=== PATIENT | female | born 1945 | race Caucasian/White ===

== ENCOUNTER → 2016-09-27 | Outpatient (CLI) | payer MEDICARE, BC ==
[~2016-09-27] MED LIST: ALAVERT10 MG PO; ALBUTEROL 0.5ML INH; ALBUTEROL17 GM INH; ASPIRIN81 MG PO; CALCIUM CARBONATE; CALTRATE+D3 PL1 EACH; CLARITHROMYCIN500 MG PO; CLARITIN10 M3 PO; CLOPIDOGREL75 MG PO; COMBIVENT14.7 GM INH; COUMADIN5 MG PO; DIAZEPAM PO; EVISTA60 M1 PO; FIORICET1 TAB PO; LORTAB 5-325 M1 EACH PO; LORTAB 7.5-3251 EACH PO; NORCO 5/325 TAB1 TAB PO; NORCO1 TAB 10/3 PO; PAMELOR25 M1 PO; PANTOPRAZOLE SO40 MG PO; PREDNISONE PO; PROTONIX PO; RANITIDINE HCL150 M1 PO; SENNA-S TABLET1 EAC1 PO; SIMVASTATIN20 MG PO; SIMVASTATIN40 MG PO; SPIRIVA18 MCG INH; SYMBICORT 160/4.6 G1 INH; SYMBICORT INH; TYLENOL325 M1 PO; VALIUM10 MG PO; VIBRAMYCIN100 M1 PO; VITAMIN B12 IM/IV; VITAMIN D1000 UNIT PO; VITAMIN D250000 UNIT PO; VITAMIN D31000 UNI1 PO; ZOCOR20 MG PO
--- NOTE | ~2016-09-27 | MY11 ---
[facility] A Service of [facility] RADIOLOGY TEXT RESULTS PATIENT: VIVIENNE COREAS LOCATION: [facility] : 47 UNIT #: [id number] AGE: [address]: ANAM CHAPMAN MD (INT MED) SEX: F ORDER DR: [id number] [facility] [address] [place], [place] [address] [id number] O MR#: [id number] Acc #: [id number] NAME: VIVIENNE COREAS : 1945 SEX: F STUDY DATE/TIME: 09/27/2016 11:13 UNIT: [facility] ROOM: STUDY DESCRIPTION: MY Mammogram Screening Dig Robinson Attending Physician: Anam Chapman M.D. Ordering Physician: Anam Chapman M.D. Primary Care Physician: Anam Chapman M.D. MEDICAL IMAGING REPORT This report is preliminary unless electronic signature is present EXAM Digital screening mammogram, 09/27/2016 HISTORY 71-year-old woman, no risk elevation. Annual screening. COMPARISON Mammograms date to 06/27/2008 with most recent screening comparison 09/21/2015. FINDINGS Digital imaging of each breast was completed utilizing standard craniocaudal and mediolateral-oblique projections. Review and interpretation of digital mammograms include a second review in conjunction with FDA-approved CAD device. There is an overall increase in the parenchymal presentation bilaterally with a generalized fibronodular pattern in each breast. There are no breast masses and I see no asymmetry in the parenchymal presentation. There are no suspicious microcalcifications and I see no architectural disturbance. IMPRESSION Benign mammogram. One-year followup recommended. Patients over the age of 40 are entered into a reminder system with target due date for the next mammogram. A result letter will also be sent to the patient. BIRADS: 2 Benign finding Dictated by... [facility] A Service of [facility] RADIOLOGY TEXT RESULTS PATIENT: VIVIENNE COREAS LOCATION: [facility] : 47 UNIT #: [id number] AGE: [address]: ANAM CHAPMAN MD (INT MED) SEX: F ORDER DR: Giancarlo Dow M.D. THIS IS AN ELECTRONICALLY VERIFIED REPORT Giancarlo Dow M.D. at 09/27/2016 3:57 PM Kena TD: 09/27/2016 15:28 JOB #: [id number] MEDICAL IMAGING REPORT COPY
== END | disposition home or self-care (01) ==
LOC: CWCC 10:32
DX: Z12.31 Encounter for screening mammogram for malignant neoplasm of breast (principal)
CPT/HCPCS: G0202

== ENCOUNTER 2016-11-07 19:11 | Emergency (ER) | payer MEDICARE, BC ==
--- NOTE | ~2016-11-07 | MR18 ---
[facility] A Service of [facility] RADIOLOGY TEXT RESULTS PATIENT: VIVIENNE COREAS LOCATION: [facility] : 49 UNIT #: [id number] AGE: [address]: Andrew Godinez DO SEX: F ORDER DR: [id number] [facility] [address] [place], [place] [address] [id number] E MR#: [id number] Acc #: [id number] NAME: VIVIENNE COREAS : 1945 SEX: F STUDY DATE/TIME: 11/07/2016 19:58 UNIT: [facility] ROOM: STUDY DESCRIPTION: MR Brain Wo Contrast Attending Physician: Andrew Godinez D.O. Ordering Physician: Radha Ordonez M.D. Primary Care Physician: Kishor Chapman M.D. MRI CENTER REPORT This report is preliminary unless electronic signature is present. EXAM Brain MRI without contrast. Date of study 11/07/2016 COMPARISON Prior MRI brain dated 03/26/2016 CLINICAL HISTORY One day history of headache with visual disturbance. FINDINGS Fairly typical for age symmetric white matter changes are seen, nonspecific and probably indicating mild chronic small vessel disease. There is no MR evidence of acute ischemia or intracranial hemorrhage. Bone marrow signal is normal. There is no hydrocephalus or extraaxial fluid collection. Normal flow voids are seen in the cerebral vessels. IMPRESSION Moderate symmetric nonspecific white matter change typical of chronic small vessel disease. No acute ischemia, hemorrhage or hydrocephalus, no convincing interval change since 03/26/2016. Dictated by... Joe Viramontes M.D. THIS IS AN ELECTRONICALLY VERIFIED REPORT Joe Viramontes M.D. at 11/09/2016 9:43 AM EVE/rajeev TD: 11/08/2016 00:11 JOB #: [id number] [facility] A Service of [facility] RADIOLOGY TEXT RESULTS PATIENT: VIVIENNE COREAS LOCATION: [facility] : 49 UNIT #: [id number] AGE: [address]: Andrew Godinez DO SEX: F ORDER DR: MRI CENTER REPORT Page 1 of 1 COPY
--- NOTE | ~2016-11-07 | EKG ---
PATIENT: VIVIENNE COREAS UNIT #: [id number] Ventricular Rate: 64 BPM Atrial Rate: 64 BPM P-R Interval: 172 ms QRS Duration: 82 ms Q-T Interval: 418 ms QTC Calculation(Bezet): 431 ms P [place]: 37 degrees Calculated R [place]: -25 degrees Calculated T [place]: 44 degrees Diagnosis Line: Normal sinus rhythm Diagnosis Line: Normal ECG Diagnosis Line: When compared with ECG of 22-JUN-2016 08:38, Diagnosis Line: No significant change was found Diagnosis Line: Confirmed by MADELEINE FERMIN MD ([id number]) on 11/07/2016 Diagnosis Line: 10:39:03 PM INTERPRETING MD: ZANDER GOMES
--- NOTE | ~2016-11-07 | CT71 ---
[facility] A Service of [facility] RADIOLOGY TEXT RESULTS PATIENT: VIVIENNE COREAS LOCATION: [facility] : 49 UNIT #: [id number] AGE: [address]: Andrew Godinez DO SEX: F ORDER DR: [id number] [facility] [address] [place], [place] [address] [id number] E MR#: [id number] Acc #: [id number] NAME: VIVIENNE COREAS : 1945 SEX: F STUDY DATE/TIME: 11/07/2016 18:05 UNIT: [facility] ROOM: STUDY DESCRIPTION: CT Head Wo Contrast Attending Physician: Andrew oGdinez D.O. Ordering Physician: Radha Ordonez M.D. Primary Care Physician: Kishor Chapman M.D. MEDICAL IMAGING REPORT This report is preliminary unless electronic signature is present EXAM Head CT without contrast, date of study 11/07/2016 PROCEDURE Axial unenhanced head CT. This CT exam was performed with one or more of the following radiation dose reduction techniques: Automatic exposure control, adjustment of mA and/or kV according to patient size, and iterative reconstruction. COMPARISON Prior head CTs most recent dated 03/24/2016. HISTORY Weakness and dizziness this afternoon and visual disturbance beginning at 6:30 this morning. FINDINGS There are intracranial atherosclerotic vascular calcifications but the brain is normal. There is no hemorrhage or hydrocephalus or extraaxial fluid collection, and the skull base and calvarium are normal. IMPRESSION Negative unenhanced head CT. Incidentally noted intracranial atherosclerotic vascular calcification, normal for age. No acute findings. Dictated by... Joe Viramontes M.D. THIS IS AN ELECTRONICALLY VERIFIED REPORT Joe Viramontes M.D. at 11/09/2016 9:45 AM TEV/psc [facility] A Service of [facility] RADIOLOGY TEXT RESULTS PATIENT: VIVIENNE COREAS LOCATION: [facility] : 49 UNIT #: [id number] AGE: [address]: Andrew Godinez DO SEX: F ORDER DR: TD: 11/07/2016 22:19 JOB #: [id number] MEDICAL IMAGING REPORT Page 1 of 1 COPY
--- NOTE | ~2016-11-07 | MR134 ---
[facility] A Service of [facility] RADIOLOGY TEXT RESULTS PATIENT: VIVIENNE COREAS LOCATION: [facility] : 49 UNIT #: [id number] AGE: [address]: Andrew Godinez DO SEX: F ORDER DR: [id number] [facility] [address] [place], [place] [address] [id number] E MR#: [id number] Acc #: [id number] NAME: VIVIENNE COREAS : 1945 SEX: F STUDY DATE/TIME: 11/07/2016 22:26 UNIT: [facility] ROOM: STUDY DESCRIPTION: MR MRA Neck Wo Contrast Attending Physician: Andrew Godinez D.O. Ordering Physician: Andrew Godinez D.O. Primary Care Physician: Kishor Chapman M.D. MRI CENTER REPORT This report is preliminary unless electronic signature is present. EXAM MR angiogram of the neck without contrast, 11/07/2016 COMPARISON MRA neck with and without contrast, 03/26/2016 HISTORY Patient woke up this morning with eyes spinning behind the eyelids and seeing red balls with lines through them. Headache today. FINDINGS Source and 3-D reconstruction MIP images of the neck arteries were obtained without contrast. Three vessel aortic arch is seen. Bilateral common, internal and external carotid arteries demonstrate expected course, caliber and flow. Left vertebral artery is dominant. Bilateral vertebral arteries demonstrate expected course and flow. Mild heterogeneity of signal is seen at the origins of bilateral ICA bulbs which are likely related to flow turbulence and/or mild plaque. IMPRESSION No hemodynamically flow limiting significant stenosis in bilateral internal carotid artery bulbs per NASCET criteria. Dictated by... Britt Ferreira M.D. THIS IS AN ELECTRONICALLY VERIFIED REPORT Britt Ferreira M.D. at 11/09/2016 3:04 PM CPR/kylee TD: 11/08/2016 09:15 JOB #: [id number] [facility] A Service of [facility] RADIOLOGY TEXT RESULTS PATIENT: VIVIENNE COREAS [id number] : 49 UNIT #: [id number] AGE: [address]: Andrew Godinez DO SEX: F ORDER DR: MRI CENTER REPORT Page 1 of 1 COPY
--- NOTE | ~2016-11-07 | MR122 ---
[facility] A Service of [facility] & [facility] RADIOLOGY TEXT RESULTS PATIENT: VIVIENNE COREAS LOCATION: [facility] : 49 UNIT #: [id number] AGE: [address]: Andrew Godinez DO SEX: F ORDER DR: [id number] [facility] [address] [place], [place] [address] [id number] E MR#: [id number] Acc #: [id number] NAME: VIVIENNE COREAS : 1945 SEX: F STUDY DATE/TIME: 11/07/2016 22:26 UNIT: [facility] ROOM: STUDY DESCRIPTION: MR MRA Head Wo Contrast Attending Physician: Andrew Godinez D.O. Ordering Physician: Andrew Godinez D.O. Primary Care Physician: Kishor Chapman M.D. MRI CENTER REPORT This report is preliminary unless electronic signature is present. EXAM MR angiogram of the head without contrast dated 11/07/2016 COMPARISON MRA head without contrast dated 03/26/2016. HISTORY 2 strokes on March 24, 2016 and the other one 5 years before it. Patient woke up this morning with eye spinning behind the eyelids. Patient was seeing red balls with lines through them. Headaches. History of basal cell cancer of the leg diagnosed in March 2016. FINDINGS Source and 3D reconstruction MIP images of the [place] of [place] was obtained without contrast. Bilateral intracranial internal carotid arteries, anterior cerebral arteries, and middle cerebral arteries are within normal limits. ACOM and left PCOM are seen. Basilar artery, bilateral posterior cerebral arteries are grossly unremarkable. The left vertebral artery is dominant. Both the vertebral arteries decrease in caliber and extend towards the vertebrobasilar junction, particularly in the right. This appearance is stable since last year. No obvious aneurysm or AVM is seen. No flow-limiting significant stenosis. Superimposed stenosis relating to atherosclerotic disease is lower in the differential consideration. IMPRESSION 1. No significant stenosis, aneurysm, or AVM. 2. The left vertebral artery is dominant. Both the vertebral arteries decrease in caliber and extend towards the vertebrobasilar junction, particularly in the right. This appearance is stable since last year. It could be normal for this patient. Superimposed stenosis relating to atherosclerotic disease is lower in the differential consideration. [facility] A Service of [facility] RADIOLOGY TEXT RESULTS PATIENT: VIVIENNE COREAS LOCATION: [facility] : 49 UNIT #: [id number] AGE: [address]: Andrew Godinez DO SEX: F ORDER DR: Dictated by... Britt Ferreira M.D. THIS IS AN ELECTRONICALLY VERIFIED REPORT Britt Ferreira M.D. at 11/09/2016 3:15 PM CPR/aa TD: 11/08/2016 09:04 JOB #: [id number] MRI CENTER REPORT Page 1 of 1 COPY
[2016-11-07 18:17] LABS: BASOPHIL# 0.1 X10e3 (0-0.3); BASOPHIL% 0.7 % (0-2.5); EOSINOPHIL# 0.1 X10e3 (0-0.7); HEMATOCRIT 37.6 % (35.0-45.0); HEMOGLOBIN 12.4 gm/dL (12.0-16.0); LYMPHOCYTE# 2.7 X10e3 (1.0-3.5); LYMPHOCYTE% 33.6 % (17.0-45.0); MEAN CELL VOLUME 85.6 FL (83-96); MEAN CORPUSCULAR HEMOGLOBIN 28.3 PG (28-34); MEAN CORPUSCULAR HGB CONC 33.1 g/dL (30-36); MEAN PLATELET VOLUME 7.9 FL (6.5-11.5); MONOCYTE# 0.7 X10e3 (0-1.0); MONOCYTE% 8.3 % (3.0-12.0); NEUTROPHIL# 4.6 X10e3 (1.5-7.1); NEUTROPHIL% 56.4 % (40-75); PLATELET COUNT 281 X10e3 (140-420); RED BLOOD COUNT 4.39 X10e (3.90-5.30); RED CELL DISTRIBUTION WIDTH 14.6 % (11.0-15.5); WHITE BLOOD COUNT 8.1 X10e3 (4.0-10.5)
[2016-11-07 18:21] LABS: DIFF IND NO
[2016-11-07 18:24] LABS: POC - TROPONIN <0.05 ng/mL (<=0.05)
[2016-11-07 18:34] LABS: INR 1.6
[2016-11-07 18:36] LABS: PROTHROMBIN TIME (PATIENT) 16.7 SECONDS (9.6-11.5)
[2016-11-07 18:40] LABS: CALCIUM SERUM 9.2 mg/dL (8.4-10.2); GLOM FILT RATE Estimated 57.5 mL/min (>60); POTASSIUM 4.1 mmol/L (3.5-5.1)
[2016-11-07 19:05] LABS: URINE SOURCE CLEAN CATCH
[2016-11-07 19:17] LABS: URINE APPEARANCE CLEAR; URINE BILIRUBIN NEG (NEG); URINE BLOOD 1+ (NEG); URINE COLOR YELLOW; URINE GLUCOSE NEG (NEG); URINE KETONE NEG (NEG); URINE LEUKOCYTE ESTERASE TRACE (NEG); URINE NITRATE NEG (NEG); URINE PH 5.5 (5-8); URINE PROTEIN NEG (NEG); URINE SPECIFIC GRAVITY 1.004 (1.003-1.035); URINE UROBILINOGEN 0.2 MG/DL (NEG)
[2016-11-07 19:20] LABS: CULTURE INDICATED? NO; URBCS1 AUWI 0-2 /[HPF] (0-2); URINE BACTERIA AUWI NEG (NEGATIVE); URINE SQUAMOUS EPITHELIAL CELL NONE SEEN /[HPF]
[2016-11-07 19:27] LABS: AMPHETAMINE NEG (NEG); BARBITURATES NEG (NEG); BENZODIAZEPINES POS (NEG); COCAINE NEG (NEG); MARIJUANA NEG (NEG); OPIATES POS (NEG); TRICYCLIC ANTIDEPRESSANTS NEG (NEG); U METHADONE NEG (NEG)
== END 2016-11-08 02:28 | disposition home or self-care (01) ==
LOC: CED 19:11
PROVIDERS: Emergency Medicine
DX: G40.909 Epilepsy, unspecified, not intractable, without status epilepticus (principal); H53.8 Other visual disturbances; F17.210 Nicotine dependence, cigarettes, uncomplicated; Z88.0 Allergy status to penicillin; Z88.8 Allergy status to other drugs, medicaments and biological substances; Z91.041 Radiographic dye allergy status; Z79.899 Other long term (current) drug therapy
CPT/HCPCS: 70450; 70544; 70547; 70551; 80048; 80307; 81003; 82553; 82947; 84484; 85025; 85610; 85652; 86140; 93005; 99284